=== PATIENT | female | born 1980 | race Caucasian/White ===

== ENCOUNTER 2020-02-29 13:07 | Outpatient (CLI) | payer BC ==
--- NOTE | 2020-02-29 14:07 | MMO ---
Bilateral MAMMO Bilat Diag [facility]. CLINICAL HISTORY: Patient is 40 years old and is seen for diagnostic exam and lump or thickening in the right breast. The patient has the following family history of breast cancer: paternal grandmother. The patient has no personal history of cancer. VIEWS: The views performed were: bilateral craniocaudal with tomosynthesis; bilateral mediolateral oblique with tomosynthesis; and bilateral mediolateral with tomosynthesis. This study has been interpreted with the assistance of computer-aided detection. MAMMOGRAM FINDINGS: There are scattered fibroglandular densities. There is a fat containing, lobular mass with associated eggshell or rim calcifications seen in the right breast at 10 o'clock. Mass correlates to the palpable abnormality in the right breast at 10 o'clock. There is a 4.6 cm conglomeration of oil cysts seen underlying the palpable region of interest. There are no suspicious masses, suspicious calcifications, or new areas of architectural distortion. IMPRESSION: THERE IS NO MAMMOGRAPHIC EVIDENCE OF MALIGNANCY. THE FINDINGS AND RECOMMENDATIONS WERE DISCUSSED WITH THE PATIENT PRIOR TO HER LEAVING THE CENTER. A ROUTINE FOLLOW-UP MAMMOGRAM AT AGE 41 IS RECOMMENDED. THE RESULTS OF THIS EXAM WERE SENT TO THE PATIENT. ACR BI-RADS Category 2 - Benign finding MAMMOGRAPHY NOTE: 1. A negative mammogram report should not delay a biopsy if a dominant of clinically suspicious mass is present. 2. Approximately 10% to 15% of breast cancers are not detected by mammography. 3. Adenosis and dense breasts may obscure an underlying neoplasm. Reported by: ANASTASIA QIU MD Electonically Signed: [id number]
== END 2020-02-29 13:08 | disposition home or self-care (01) ==
LOC: BICMAMMO 13:07
PROVIDERS: ATTEND Physician Assistant
DX: N63.11 Unspecified lump in the right breast, upper outer quadrant (principal)
CPT/HCPCS: 77066; G0279

== ENCOUNTER 2021-10-27 14:06 | Outpatient (CLI) | payer BC | END 2021-10-27 14:07 | disposition home or self-care (01) | LOC: SCSMRI 14:06 | PROVIDERS: ATTEND Orthopaedic Surgery | DX: M47.812 Spondylosis without myelopathy or radiculopathy, cervical region (principal); M75.102 Unspecified rotator cuff tear or rupture of left shoulder, not specified as traumatic ==

== ENCOUNTER 2021-12-19 22:01 | Emergency (ER) | payer BC ==
[2021-12-20 00:20] LABS: Hemoglobin 14.6 g/dL (12.0-16.0); Mean Corpuscular HGB CONC 33.1 g/dL (32.0-36.0); Mean Corpuscular Hemoglobin 31.4 pg (27.0-31.0); Mean Corpuscular Volume 94.8 fL (78.0-98.0); Platelet Count 375 thou/uL (130-400); RBC Distribution Width 13.1 % (11.5-14.5); Red Blood Cell (RBC) Count 4.66 mill/uL (4.20-5.40); White Blood Cell (WBC) Count 25.1 thou/uL (4.8-10.8)
[2021-12-20 00:28] LABS: Phosphorus 3.7 mg/dL (2.3-4.7)
[2021-12-20 00:51] LABS: Band 5 % (5-11); Lymphocytes 30 % (21-51); MDiff Complete? YES; Monocytes 5 % (0-10); Neutrophil 57 % (42-75); Platelet Morphology Comment Appears Adequate; RBC Morphology Normal; Reactive Lymphocytes 3 % (0-10)
== END 2021-12-20 00:55 | disposition home or self-care (01) ==
LOC: ERS 22:01
DX: S09.90XA Unspecified injury of head, initial encounter (principal); R55 Syncope and collapse; E03.9 Hypothyroidism, unspecified; E78.5 Hyperlipidemia, unspecified; F17.210 Nicotine dependence, cigarettes, uncomplicated
CPT/HCPCS: 70450; 83605; 83735; 84100; 84443; 84484; 84702; 85025; 93005

== ENCOUNTER 2022-11-19 10:42 | Emergency (ER) | payer BC ==
[~2022-11-19 10:42] MED LIST: Iopamidol-370 76% 500 ML MDV (1 ML CHARGE) ONE
[2022-11-19 11:16] LABS: #Basophils 0.1 thou/uL (0.0-0.2); #Eosinphils 0.1 thou/uL (0.0-0.7); #Monocytes 1.3 thou/uL (0.11-0.59); #Neutrophils 12.6 thou/uL (1.40-6.50); %Basophils 0.4 % (0.0-1.0); %Eosinophils 0.8 % (0.0-10.0); %Lymphocytes 20.8 % (21.0-51.0); %Monocytes 7.4 % (0.0-10.0); %Neutrophils 69.8 % (42.0-75.0); Hemoglobin 14.2 g/dL (12.0-16.0); Mean Corpuscular Hemoglobin 30.9 pg (27.0-31.0); Mean Corpuscular Volume 93.5 fl (78.0-98.0); Mean Platelet Volume 8.9 fL (7.4-10.4); Platelet Count 342 10x3/uL (130-400); RBC Distribution Width 14.4 % (11.5-14.5)
[2022-11-19 11:29] LABS: BHCG - Serum Negative (NEGATIVE); Pregs Control Background? CLEAR/WHITE (CLR/WHITE); Pregs Control Bar Appear? YES (CONTROL BAR)
[2022-11-19 11:44] LABS: ALT (SGPT) 15 U/L (8-55); AST (SGOT) 12 U/L (5-34); Albumin 3.6 g/dL (3.5-5.0); Alkaline Phosphatase 55 U/L (40-110); Anion Gap 10 mmol/L (10-20); BUN (Urea Nitrogen) 8 mg/dL (7.0-18.7); Bilirubin, Total 0.6 mg/dL (0.2-1.2); Calc. Creatinine Clearance 0 mL/min (70-130); Calcium 8.7 mg/dL (7.8-10.44); Carbon Dioxide 22 mmol/L (22-29); Chloride 107 mmol/L (98-107); Estimated GFR 96; Globulin 3.2 g/dL (2.4-3.5); Glucose 100 mg/dL (70-105); Lipase 13 U/L (8-78); Potassium 3.9 mmol/L (3.5-5.1); Protein, Total 6.8 g/dL (6.0-8.3); Sodium 135 mmol/L (136-145)
== END 2022-11-19 14:02 | disposition home or self-care (01) ==
LOC: ERS 10:42
DX: N83.202 Unspecified ovarian cyst, left side (principal); E78.00 Pure hypercholesterolemia, unspecified; F17.210 Nicotine dependence, cigarettes, uncomplicated; Z79.899 Other long term (current) drug therapy
CPT/HCPCS: 36415; 74177; 76856; 80053; 83690; 84703; 85025; Q9967

== ENCOUNTER 2022-12-12 13:41 | Outpatient (CLI) | payer BC | END 2022-12-12 13:42 | disposition home or self-care (01) | LOC: ULT 13:41 | PROVIDERS: ATTEND Nurse Practitioner Family | DX: N83.202 Unspecified ovarian cyst, left side (principal); N83.8 Other noninflammatory disorders of ovary, fallopian tube and broad ligament; N83.201 Unspecified ovarian cyst, right side | CPT/HCPCS: 76856 ==

== ENCOUNTER 2023-10-03 12:28 | Outpatient (CLI) | payer BC | END 2023-10-03 12:29 | disposition home or self-care (01) | LOC: MRI 12:28 | PROVIDERS: ATTEND Nurse Practitioner Family | DX: M54.42 Lumbago with sciatica, left side (principal); M47.816 Spondylosis without myelopathy or radiculopathy, lumbar region | CPT/HCPCS: 72148 ==

== ENCOUNTER 2024-01-28 14:16 | Outpatient (CLI) | payer BC | END 2024-01-28 14:17 | disposition home or self-care (01) | LOC: ULT 14:16 | PROVIDERS: ATTEND Family Medicine | DX: E01.0 Iodine-deficiency related diffuse (endemic) goiter (principal) | CPT/HCPCS: 76536 ==